=== PATIENT | male | born 1985 | race Caucasian/White ===

== ENCOUNTER 2016-10-11 12:26 | Emergency (ER) | payer MEDICAID ==
[~2016-10-11] VITALS: Ht 182.9 cm; Wt 70.5 kg
[2016-10-11 12:29] VITALS: BP 121/64; PULSE 60; RESP 16; TEMP 98.1; O2SAT 99
[2016-10-11] MEDS ORDERED: SODIUM CHLOR 0.9% 1000 ML INJ 1,000 ML IV SCH (12:41)
[2016-10-11] MEDS ORDERED: SODIUM CHLORIDE 0.9% FLUSH 10 ML FLUSH IV FLUSH PRN (12:45)
[2016-10-11] MEDS ORDERED: DICYCLOMINE HCL 10 MG CAP PO ONE (12:45)
[2016-10-11] MEDS ORDERED: SODIUM CHLOR 0.9% 1000 ML INJ 1,000 ML IV ONE (12:45)
[2016-10-11] MEDS ORDERED: ONDANSETRON HCL 4 MG/2 ML VIAL IVP ONE (12:45)
[2016-10-11] MEDS ORDERED: FAMOTIDINE 20 MG/2 ML VIAL IV PUSH ONE (12:45)
--- NOTE | 2016-10-11 12:58 | PD ---
HPI Chief Complaint: GI Complaint Time Seen by Provider: 12:37 Travel History International Travel<30 days: No Contact w/Intl Traveler<30days: No Traveled to known affect area: No History of Present Illness HPI Patient is a 31-year-old male who presents to emergency room with his for evaluation of nausea, vomiting, diarrhea. Patient reports that his symptoms began this morning, reports that his was sick with similar symptoms yesterday. Reports no recent travels or any trips, denies any ingestion of any antibiotics. Patient reports that he is unable to eat or drink or keep any fluids at this time. Patient reports that he feels dehydrated. Patient with no abdominal pain, reports that his abdomen feels crampy when he vomits. PFSH Past Medical History Medical History: Denies Significant Hx Influenza Vaccination: No Past Surgical History Surgical History: No Previous Surgery Social History Alcohol Use: Yes (occas) Tobacco Use: No Substance Use: No Allergies-Medications (Allergen,Severity, Reaction): Coded Allergies: No Known Allergies (Unverified , 10/11/16) Reported Meds & Prescriptions Reported Meds & Active Scripts Active Zofran Odt (Ondansetron Odt) 4 Mg Tab 4 Mg SL Q6HR PRN Macrobid (Nitrofurantoin Monoh/Nitrofur Macro) 100 Mg Cap 100 Mg PO BID 10 Days Review of Systems General / Constitutional: No: Fever Eyes: No: Visual changes HENT: No: Headaches Cardiovascular: No: Chest Pain or Discomfort Respiratory: No: Shortness of Breath Gastrointestinal: Positive: Nausea, Vomiting, Diarrhea, No: Abdominal Pain Genitourinary: No: Dysuria Musculoskeletal: No: Pain Skin: No Rash Neurologic: No: Weakness Psychiatric: No: Depression Endocrine: No: Polydipsia Hematologic/Lymphatic: No: Easy Bruising Physical Exam Narrative GENERAL: moderate distress SKIN: Focused skin assessment warm/dry. HEAD: Atraumatic. Normocephalic. EYES: Pupils equal and round. No scleral icterus. No injection or drainage. ENT: No nasal bleeding or discharge. Mucous membranes pink and moist. NECK: Trachea midline. No JVD. CARDIOVASCULAR: Regular rate and rhythm. No murmur appreciated. RESPIRATORY: No accessory muscle use. Clear to auscultation. Breath sounds equal bilaterally. GASTROINTESTINAL: Abdomen soft, non-tender, nondistended. Hepatic and splenic margins not palpable. MUSCULOSKELETAL: No obvious deformities. No clubbing. No cyanosis. No edema. NEUROLOGICAL: Awake and alert. No obvious cranial nerve deficits. Motor grossly within normal limits. Normal speech. PSYCHIATRIC: Appropriate mood and affect; insight and judgment normal. Data Data Last Documented VS Vital Signs Date Time Temp Pulse Resp B/P Pulse Ox O2 Delivery O2 Flow Rate FiO2 10/11/16 12:29 98.1 60 16 121/64 99 Orders Basic Metabolic Panel (Bmp) (10/11/16 12:41) Complete Blood Count With Diff (10/11/16 12:41) Lipase (10/11/16 12:41) Urinalysis - C+S If Indicated (10/11/16 12:41) Iv Access Insert/Monitor (10/11/16 12:41) Ondansetron Inj (Zofran Inj) (10/11/16 12:45) Sodium Chlor 0.9% 1000 Ml Inj (Ns 1000 M (10/11/16 12:41) Sodium Chloride 0.9% Flush (Ns Flush) (10/11/16 12:45) Famotidine Inj (Pepcid Inj) (10/11/16 12:45) Dicyclomine (Bentyl) (10/11/16 12:45) Sodium Chlor 0.9% 1000 Ml Inj (Ns 1000 M (10/11/16 12:45) Urine Culture (10/11/16 12:50) Gc And Chlamydia Pcr (10/11/16 13:29) Ceftriaxone Inj (Rocephin Inj) (10/11/16 13:30) Labs Laboratory Tests Test 10/11/16 12:50 White Blood Count 8.4 TH/MM3 Red Blood Count 5.84 MIL/MM3 Hemoglobin 16.5 GM/DL Hematocrit 49.2 % Mean Corpuscular Volume 84.2 FL Mean Corpuscular Hemoglobin 28.3 PG Mean Corpuscular Hemoglobin 33.6 % Concent Red Cell Distribution Width 12.3 % Platelet Count 227 TH/MM3 Mean Platelet Volume 9.2 FL Neutrophils (%) (Auto) 86.2 % Lymphocytes (%) (Auto) 6.1 % Monocytes (%) (Auto) 7.3 % Eosinophils (%) (Auto) 0.2 % Basophils (%) (Auto) 0.2 % Neutrophils # (Auto) 7.3 TH/MM3 Lymphocytes # (Auto) 0.5 TH/MM3 Monocytes # (Auto) 0.6 TH/MM3 Eosinophils # (Auto) 0.0 TH/MM3 Basophils # (Auto) 0.0 TH/MM3 CBC Comment DIFF FINAL Differential Comment Urine Collection Type CLEAN CATCH Urine Color YELLOW Urine Turbidity MOD Urine pH 5.5 Urine Specific [place] 1.035 Urine Protein 300 OR GREATER mg/dL Urine Glucose (UA) NEG mg/dL Urine Ketones 15 mg/dL Urine Occult Blood SMALL Urine Nitrite POS Urine Bilirubin NEG Urine Leukocyte Esterase TRACE Urine RBC 0-3 /hpf Urine WBC 25-49 /hpf Urine WBC Clumps FEW Urine Squamous Epithelial 0-5 /hpf Cells Urine Transitional Epithelial 0-5 /hpf Cells Urine Amorphous Sediment LARGE Urine Bacteria FEW /hpf Microscopic Urinalysis Comment CULTURE INDICATED Urine Collection Time 1250 Sodium Level 139 MEQ/L Potassium Level 4.4 MEQ/L Chloride Level 103 MEQ/L Carbon Dioxide Level 28.2 MEQ/L Anion Gap 8 MEQ/L Blood Urea Nitrogen 10 MG/DL Creatinine 1.40 MG/DL Estimat Glomerular Filtration 60 ML/MIN Rate Random Glucose 112 MG/DL Calcium Level 10.3 MG/DL Lipase 97 U/L MDM Medical Decision Making Medical Screen Exam Complete: Yes Emergency Medical Condition: Yes Interpretation(s) Vital Signs Date Time Temp Pulse Resp B/P Pulse Ox O2 Delivery O2 Flow Rate FiO2 10/11/16 12:29 98.1 60 16 121/64 99 Differential Diagnosis Gastroenteritis, gastritis, electrolyte abnormality, viral syndrome Narrative Course 31-year-old male who presents to emergency room with complaints of nausea, vomiting and diarrhea that began this morning when he woke up from sleep. Patient reports that his was sick last night with similar symptoms. Patient with no abdominal pain - reports abdominal cramping with vomiting VSS Plan to obtain IV, will provide IV hydration and give antiemetics. CBC & BMP Diagram 10/11/16 12:50 Microbiology Date/Time Procedure Status Source Growth 10/11/16 12:50 Urine Culture Received Urine Clean Catch Pending Vital Signs Date Time Temp Pulse Resp B/P Pulse Ox O2 Delivery O2 Flow Rate FiO2 10/11/16 12:29 98.1 60 16 121/64 99 cbc: wbc 8.4, hgb 16.5, hct 49.2, plt: 227 bmp: sodium 139, potassium 4.4, bun 10, creatine 1.4, glucose 112, carbon dioxide 28.2 UA: few bacteria, trace leuk esteraste, wbc clumps: few, urine wbc 25-49, pos nitrites, patient does have a uti at this time, will treat with rocephin, UC sent G/C sent although patient denies penile discharge Patient reevaluated, patient reports that he is feeling much better at this time. Abdomen is soft, nontender, nondistended, no peritoneal signs. Patient requesting by oral trial at this time. Patient tolerated oral trial. Plan to discharge patient to home. he will follow up with cultures from today. Signs and symptoms of when to return to ER was reviewed with patient in detail patient tolerated po trial, patient feeling much better. abdomen is soft, nt/nd , no peritoneal signs. signs and symptoms of when to return to ER was reviewed with patient in detail Diagnosis Primary Impression: Nausea & vomiting Qualified Code: R11.2 - Non-intractable vomiting with nausea, unspecified vomiting type Additional Impressions: Dehydration UTI (urinary tract infection) Qualified Code: N30.01 - Acute cystitis with hematuria Patient Instructions: General Instructions Departure Forms: Tests/Procedures, Work Release Enter return to work date: October 13, 2016 Additional Instructions: Please return to the emergency room as needed Please drink plenty of fluids, follow-up with your primary care doctor in 2-3 days Please follow-up with all cultures from today Return to emergency room if symptoms worsen or progress Med/Other Pt SpecificInfo: Prescription(s) given Scripts Ondansetron Odt (Zofran Odt)4 Mg Tab4 Mg SL Q6HR PRN (Nausea/Vomiting) #30 TAB Ref 0 Prov:Tara Fishman DO 10/11/16 Nitrofurantoin Monohydrate Macrocrystals (Macrobid)100 Mg [id number] Mg PO BID 10 Days Ref 0 Prov:Tara Fishman DO 10/11/16 Disposition: DISCHARGE HOME Condition: Stable Tara Fishman DO October 11, 2016 12:58
[2016-10-11 13:01] LABS: AUTOMATED NEUTROPHIL # 7.3 TH/MM3 (1.8-7.7); BASOPHIL % 0.2 % (0.0-2.0); EOSINOPHIL % 0.2 % (0.0-4.0); HEMATOCRIT 49.2 % (39.0-51.0); HEMO FLAGS DIFF FINAL; LYMPH % 6.1 % (9.0-44.0); LYMPHOCYTE # 0.5 TH/MM3 (1.0-4.8); MEAN CELL VOLUME 84.2 FL (80.0-100.0); MEAN CORPUSCULAR HEMOGLOBIN 28.3 PG (27.0-34.0); MEAN CORPUSCULAR HGB CONC 33.6 % (32.0-36.0); MONO % 7.3 % (0.0-8.0); NEUT % 86.2 % (16.0-70.0); PLATELET COUNT 227 TH/MM3 (150-450); RED BLOOD COUNT 5.84 MIL/MM3 (4.50-5.90); RED CELL DISTRIBUTION WIDTH 12.3 % (11.6-17.2); WHITE BLOOD COUNT 8.4 TH/MM3 (4.0-11.0)
[2016-10-11 13:09] LABS: BLOOD, URINE SMALL (NEG); GLUCOSE,URINE NEG (NEG); KETONE, URINE 15 mg/dL (NEG); PH, URINE 5.5 (5.0-8.5); POTASSIUM 4.4 MEQ/L (3.5-5.1)
[2016-10-11 13:12] LABS: BICARBONATE 28.2 MEQ/L (21.0-32.0)
[2016-10-11 13:13] LABS: NITRITE,URINE POS (NEG)
[2016-10-11 13:14] LABS: METHOD OF COLLECTION CLEAN CATCH; URINE COLOR YELLOW (YELLW/STRAW)
[2016-10-11 13:16] LABS: BACTERIA, URINE FEW /hpf; COMMENT (UR) CULTURE INDICATED; COMMENT2 (UR) MUCOUS PRESENT; CULTURE IF INDICATED CULTURE INDICATED; RBC, URINE 0-3 /hpf (0-3); SQUAMOUS EPITHELIAL CELL URINE 0-5 /hpf (0-5); TRANSITIONAL EPI CELLS, URINE 0-5 /hpf
[2016-10-11] MEDS ORDERED: cefTRIAXone INJ 1,000 MG in SODIUM CHLORIDE 0.9% INJ 100 ML IV ONE (13:30)
[2016-10-11] MEDS ORDERED: ZOFR4TAB3 SL (14:10)
[2016-10-11] MEDS ORDERED: MACR100C2 PO (14:10)
[2016-10-11 15:00] VITALS: BP 129/84; PULSE 75; RESP 20; O2SAT 98
[2016-10-11 18:35] LABS: CHLAMYDIA PCR DETECTED (NOT DETECT); NEISSERIA PCR NOT DETECTED (NOT DETECT)
== END 2016-10-11 15:46 | disposition home or self-care (01) ==
LOC: PHED 12:26
DX: R11.2 Nausea with vomiting, unspecified (principal); E86.0 Dehydration; N39.0 Urinary tract infection, site not specified; R19.7 Diarrhea, unspecified; Z79.899 Other long term (current) drug therapy
CPT/HCPCS: 80048; 81001; 83690; 85025; 87086; 87491; 87591; 96361; 96365; 96375; 99284; J0696; J2405; J7030

== ENCOUNTER 2016-10-19 10:26 | Emergency (ER) | payer MEDICAID ==
[~2016-10-19] VITALS: Ht 182.9 cm; Wt 74.9 kg
[~2016-10-19 10:26] MED LIST: MACR100C2 PO; ZOFR4TAB3 SL
[2016-10-19 10:33] VITALS: BP 124/72; PULSE 81; RESP 18; TEMP 98.2; O2SAT 100
--- NOTE | 2016-10-19 10:40 | PD ---
HPI Chief Complaint: Complaint Time Seen by Provider: 10:40 Travel History International Travel<30 days: No Contact w/Intl Traveler<30days: No Traveled to known affect area: No History of Present Illness HPI 31-year-old male came to the emergency room with history of chlamydia retried this that was diagnosed about a week ago when he had come to this emergency room. Patient says he did not finish his entire course because he went out of town for Mother's Day and left the medications there. He is concerned and hence he is here to get the remaining antibiotic prescription. I looked up at his past test results and he indeed was positive for chlamydia. He was told that he has UTI however the urine culture did not grow anything. [facility] Past Medical History Narrative Medical List of his past medical, surgical, social and family history was reviewed from the nursing note. Social History Alcohol Use: Yes (occas) Tobacco Use: No Substance Use: No Allergies-Medications (Allergen,Severity, Reaction): Coded Allergies: No Known Allergies (Unverified , 10/19/16) Comments No known drug allergies. Reported Meds & Prescriptions Reported Meds & Active Scripts Active No Active Prescriptions or Reported Medications Narrative Medication List of his home medications reviewed from the nursing note. Review of Systems Except as stated in HPI: all other systems reviewed are Neg Physical Exam Narrative GENERAL: Awake, alert, no obvious distress SKIN: Focused skin assessment warm/dry. HEAD: Atraumatic. Normocephalic. EYES: Pupils equal and round. No scleral icterus. No injection or drainage. ENT: No nasal bleeding or discharge. Mucous membranes pink and moist. NECK: Trachea midline. No JVD. CARDIOVASCULAR: Regular rate and rhythm. No murmur appreciated. RESPIRATORY: No accessory muscle use. Clear to auscultation. Breath sounds equal bilaterally. GASTROINTESTINAL: Abdomen soft, non-tender, nondistended. Hepatic and splenic margins not palpable. MUSCULOSKELETAL: No obvious deformities. No clubbing. No cyanosis. No edema. NEUROLOGICAL: Awake and alert. No obvious cranial nerve deficits. Motor grossly within normal limits. Normal speech. PSYCHIATRIC: Appropriate mood and affect; insight and judgment normal. Data Data Last Documented VS Vital Signs Date Time Temp Pulse Resp B/P Pulse Ox O2 Delivery O2 Flow Rate FiO2 10/19/16 10:33 98.2 81 18 124/72 100 Orders Azithromycin (Zithromax) (10/19/16 10:45) Sodium Chloride 0.9% Flush (Ns Flush) (10/19/16 10:45) MDM Medical Decision Making Medical Screen Exam Complete: Yes Emergency Medical Condition: Yes Medical Record Reviewed: Yes Differential Diagnosis Chlamydial urethritis, prescription refill Narrative Course 10:50 AM patient was given 1 g of Zithromax so that he does not have to go through losing prescriptions again. Patient will be discharged home after this with instructions. Procedures EKG Prior to Arrival: No Diagnosis Primary Impression: Chlamydia infection Additional Impression: STD (male) Referrals: Primary Care Physician Additional Instructions: He must have shown intercourse using condoms only for next 3 weeks. Your partner(s) needs to be treated as well. Follow-up with your primary care. He will treated with one time dose only for chlamydia which should take care of the infection this time. However you are at risk for lynn the disease and future with unprotected intercourse. Also you can transmit the disease without condoms over the next couple weeks during sexual intercourse. Scripts No Active Prescriptions or Reported Meds Disposition: 01 DISCHARGE HOME Condition: Yolette Guzman MD October 19, 2016 10:40
[2016-10-19] MEDS ORDERED: AZITHROMYCIN 250 MG TAB PO ONE (10:45)
[2016-10-19] MEDS ORDERED: SODIUM CHLORIDE 0.9% FLUSH 10 ML FLUSH IVF PRN (10:45)
== END 2016-10-19 10:58 | disposition home or self-care (01) ==
LOC: PHED 10:26
DX: A56.8 Sexually transmitted chlamydial infection of other sites (principal)
CPT/HCPCS: 99283